=== PATIENT | female | born 1940 | race African-American/Black ===

== ENCOUNTER 2016-07-23 16:57 | Emergency (ER) | payer OTHER ==
[~2016-07-23] VITALS: Ht 162.6 cm; Wt 68.0 kg
[~2016-07-23 16:57] MED LIST: ADULT LOW DOSE81 MG PO; ALTACE5 M1 PO; ARICEPT 5 MG TAB5 MG PO; ARICEPT10 M1 PO; ASPIRIN EC81 M1 PO; CALCIUM 600 +1 EAC1 PO; CEFTIN 250 MG250 MG PO; CELEXA 20 MG TA20 MG PO; CLONAZEPAM 0.50.5 M1 PO; COREG3.125 MG PO; EUCERIN CREME57 GM TOP; FENTANYL PA25 MCG/HR TRANSDERM; FOSAMAX 70 MG T70 MG PO; HYDROCODON-ACE1 EA12 PO; HYDROCODON-ACE1 EAC8 PO; LEVAQUIN 250 M250 MG PO; LISINOPRIL10 MG PO; MULTIVITAMINS PO; NAMENDA 10 MG T10 MG PO; PAIN & FEVER325 MG PO; RISPERDAL0.5 MG PO; SENNA S TABLET1 EACH PO; SENOKOT-S1 TA1 PO; XALATAN2.5 ML OPHTHALMIC
[2016-07-23 17:50] LABS: ABSOLUTE NEUTROPHILS 5.4 thou/uL (1.4-8.2); BASOPHILS 0.7 % (0.0-2.0); EOSINOPHILS 0.5 % (0.0-3.0); HEMATOCRIT 39.9 % (37.0-47.0); HEMOGLOBIN 13.2 gm/dL (12.0-15.0); LYMPHOCYTES 11.3 % (24.0-44.0); MANUAL DIFF NO; MCH 30.2 pg (26.0-34.0); MCHC 33.1 % (28.0-37.0); MCV 91.1 fL (80.0-100.0); MONOCYTES 8.4 % (1.0-8.0); PLATELET COUNT 223 thou/uL (150-400); POLYS 79.1 % (36.0-66.0); RBC 4.38 mil/uL (4.20-5.00); RDW 14.4 % (10.5-14.5); WBC 6.8 thou/uL (4.0-11.0)
[2016-07-23 17:54] LABS: CALCIUM 10.3 mg/dL (8.5-10.1); CREATININE 1.1 mg/dL (0.6-1.3); POTASSIUM 3.9 mmol/L (3.5-5.1)
[2016-07-23 18:01] LABS: ALBUMIN 3.7 g/dL (3.4-5.0); TOTAL BILIRUBIN 0.3 mg/dL (<0.1-1.0); TOTAL PROTEIN 8.7 g/dL (6.4-8.2)
[2016-07-23 18:39] LABS: URINE BILIRUBIN NEGATIVE (Negative); URINE BLOOD TRACE (Negative); URINE COLOR YELLOW; URINE GLUCOSE-RANDOM* NEGATIVE (Negative); URINE KETONES NEGATIVE (Negative); URINE NITRITE POSITIVE (Negative); URINE PROTEIN (DIPSTICK) NEGATIVE (Negative); URINE UROBILINOGEN 0.2 E.U./dl (0.2-1.0)
[2016-07-23 18:48] LABS: SQUAMOUS 0-3 Few /LPF (0-3)
[2016-07-23 18:49] LABS: BACTERIA >30 Many /HPF (None Seen); CASTS None Seen /LPF (None Seen); CRYSTALS None Seen /LPF (None Seen); URINE RBC 0-2 Rare /HPF (0-2); URINE WBC 6-15 Few /HPF (0-5)
[2016-07-23] MEDS ORDERED: KEFLEX500 MG PO (19:46)
== END 2016-07-23 21:20 ==
LOC: ER 16:57
PROVIDERS: Nurse Practitioner Family
DX: J11.1 Influenza due to unidentified influenza virus with other respiratory manifestations (principal); N39.0 Urinary tract infection, site not specified; I10 Essential (primary) hypertension; Z88.0 Allergy status to penicillin; Z88.8 Allergy status to other drugs, medicaments and biological substances

== ENCOUNTER 2018-06-27 08:24 | Inpatient (IN) | payer OTHER ==
[~2018-06-27] VITALS: Ht 157.5 cm; Wt 78.0 kg
--- NOTE | ~2018-06-27 | HC ---
[facility] [place] [address] CONSULTATION Name: SHIVAM HERRERA Room #: 461-P ADM IN M.R.#: [id number] Admission: 06/27/18 Attend Phys: Marni Vu MD Discharge: Date of : 38 Report #: [id number] THIS REPORT FOR: //name// CC: Marni Vu DATE OF SERVICE: 07/02/2018 REASON FOR CONSULTATION: I was asked to evaluate concerning pyelonephritis. HISTORY OF PRESENT ILLNESS: The patient was a 78-year-old resident of a [facility], presented on 06/27/2018 with decreased mental status, acute kidney injury, hyponatremia and found to have E. coli pyelonephritis. Treated with ceftriaxone. Her metabolic encephalopathy has improved. Her hyponatremia has improved over the last several days. The patient was alert, but unable to give any history. History was gleaned from the chart and discussion with nursing. She has urinary incontinence. ALLERGIES: PENICILLIN, SEROQUEL, SERTRALINE. MEDICATIONS: As noted on her MAR including ceftriaxone. PAST MEDICAL HISTORY: Alzheimer's dementia with delusions, urinary incontinence, osteoporosis, lumbar disk disease with chronic pain, hypertension, hyperlipidemia, depression, glaucoma. FAMILY HISTORY: Noncontributory. SOCIAL HISTORY: Nonsmoker, no significant alcohol intake. REVIEW OF SYSTEMS: The patient was unable to participate in evaluation. Through discussion with nursing staff, the patient had reasonable oral intake. No reported vomiting. No diarrhea. She has an external urinary catheter that has been functioning. She has had no skin issues. No cough or sputum production. She is generally debilitated. A 10-point review otherwise, negative. PHYSICAL EXAMINATION: VITAL SIGNS: Afebrile and hemodynamically stable. GENERAL: She was alert, but unable to roll over in bed on her own. She would not answer any questions. HEENT: Nonicteric with no conjunctivitis. Mouth without lesion. NECK: Supple. She had increased muscle tone throughout. SKIN: Without rash or decubitus. No palpable adenopathy. LUNGS: Clear. HEART: Regular, without murmur. ABDOMEN: Soft and nontender. I did not appreciate any CVA tenderness. [facility] [address] [address] CONSULTATION Name: SHIVAM HERRERA Room #: 461-P [facility] IN M.R.#: [id number] Admission: 06/27/18 Attend Phys: Marni Vu MD Discharge: Date of : 38 Report #: [id number] EXTERNAL GENITALIA: With an external catheter in place. There was no lesion or dermatitis identified. RECTAL: Not performed. EXTREMITIES: Without clubbing, cyanosis or edema. NEUROLOGIC: Unable to assess her mood. She was with increased muscle tone throughout. She was able to move her upper extremities. Could not get her to respond well enough to move her lower extremities. She did, when I rolled her over, have some spontaneous movement in the lower legs, but overall very stiff. Plantar reflexes were downgoing. LABORATORY STUDIES: Sodium 142, potassium 4.1, bicarbonate 23, creatinine 1.1. Hemoglobin 10, WBC 8.2, platelet count 196,000. Blood culture E. coli, which was pansensitive. No urine culture placed. Urinalysis showed pyuria and bacteriuria. CT of the abdomen showed gallstones in the gallbladder with no gallbladder wall thickening. Left kidney was enlarged with inflammatory change and perinephric inflammation with an upper pole left renal cyst in the region. This was most consistent with pyelonephritis. No ureteral obstruction. ASSESSMENT: Day 5 treatment left pyelonephritis due to Escherichia coli with associated bacteremia. Acute kidney injury, resolved. Sepsis, resolved. Toxic metabolic encephalopathy, resolved, now back to her baseline dementia. Hypernatremia, resolved. RECOMMENDATION: 1. We will continue with Omnicef 300 mg p.o. b.i.d. to complete 14 days of antibiotic therapy. At this point, it does not appear that the cyst in the region is involved. This will need to be followed, however, by rechecking her urinalysis and urine culture approximately 7-10 days after completing her antibiotic course. 2. Continue hydration and nutritional support. <ELECTRONICALLY SIGNED> By: Rony Bhandari MD 07/03/18 0929 [id number] Rony Bhandari MD /nt
[~2018-06-27 08:24] MED LIST changes: +KEFLEX500 MG PO
[2018-06-27 08:25] VITALS: BP 133/98
[2018-06-27 08:42] LABS: URINE BILIRUBIN NEGATIVE (Negative); URINE BLOOD 2+ (Negative); URINE CLARITY CLOUDY; URINE COLOR YELLOW; URINE GLUCOSE-RANDOM* NEGATIVE (Negative); URINE KETONES NEGATIVE (Negative); URINE LEUKOCYTES 3+ (Negative); URINE NITRITE POSITIVE (Negative); URINE PROTEIN (DIPSTICK) TRACE (Negative); URINE SPECIFIC GRAVITY 1.015 (1.005-1.035); URINE UROBILINOGEN 0.2 E.U./dl (0.2-1.0)
[2018-06-27] MEDS ORDERED: VITAMIN D50000 UNIT PO (08:49)
[2018-06-27] MEDS ORDERED: TYLENOL325 MG PO (08:49)
[2018-06-27] MEDS ORDERED: PRINIVIL20 MG PO (08:50)
[2018-06-27] MEDS ORDERED: XALATAN2.5 ML OPHTHALMIC (08:50)
[2018-06-27] MEDS ORDERED: REMERON15 MG PO (08:50)
[2018-06-27] MEDS ORDERED: TRIPLE ANTIBIO1 EAC1 TOP (08:51)
[2018-06-27 08:55] LABS: ABSOLUTE NEUTROPHILS 5.3 thou/uL (1.4-8.2); BASOPHILS 0.4 % (0.0-2.0); EOSINOPHILS 0.1 % (0.0-3.0); HEMATOCRIT 38.8 % (37.0-47.0); HEMOGLOBIN 12.8 gm/dL (12.0-15.0); LYMPHOCYTES 9.3 % (24.0-44.0); MCH 30.7 pg (26.0-34.0); MCHC 32.9 g/dL (28.0-37.0); MCV 93.5 fL (80.0-100.0); PLATELET COUNT 202 thou/uL (150-400); POLYS 88.2 % (36.0-66.0); RBC 4.16 mil/uL (4.20-5.00); RDW 15.7 % (10.5-14.5)
[2018-06-27 09:08] LABS: CALCIUM 10.9 mg/dL (8.5-10.1); CREATININE 1.9 mg/dL (0.6-1.0); POTASSIUM 3.7 mmol/L (3.5-5.1)
[2018-06-27 09:14] LABS: ALBUMIN 3.1 g/dL (3.4-5.0); TOTAL BILIRUBIN 0.9 mg/dL (<0.1-1.0); TOTAL PROTEIN 9.6 g/dL (6.4-8.2)
[2018-06-27 09:20] LABS: WBC CLUMPS Many (None Seen)
[2018-06-27 09:21] LABS: CASTS None Seen /LPF (None Seen); CRYSTALS None Seen /LPF (None Seen); SQUAMOUS 0-3 Few /LPF (0-3); URINE WBC >25 Many /HPF (0-5)
[2018-06-27 09:22] LABS: BACTERIA >30 Many /HPF (None Seen); URINE RBC 3-10 Few /HPF (0-2)
[2018-06-27 10:12] VITALS: BP 120/65
[2018-06-27 10:33] VITALS: BP 130/54
[2018-06-27 11:00] VITALS: BP 148/63
[2018-06-27 16:00] VITALS: BP 113/57
[2018-06-27 19:25] VITALS: BP 127/68
[2018-06-28 03:01] VITALS: BP 134/66
[2018-06-28 09:42] LABS: HEMATOCRIT 33.3 % (37.0-47.0); HEMOGLOBIN 10.9 gm/dL (12.0-15.0); MCH 30.4 pg (26.0-34.0); MCHC 32.6 g/dL (28.0-37.0); MCV 93.1 fL (80.0-100.0); RBC 3.57 mil/uL (4.20-5.00); RDW 15.5 % (10.5-14.5); WBC 7.8 thou/uL (4.0-11.0)
[2018-06-28 09:51] LABS: CALCIUM 9.6 mg/dL (8.5-10.1); CREATININE 1.4 mg/dL (0.6-1.0); POTASSIUM 3.7 mmol/L (3.5-5.1)
[2018-06-28 11:44] VITALS: BP 125/63
[2018-06-28 21:18] VITALS: BP 115/59
[2018-06-29 04:13] VITALS: BP 144/97
[2018-06-29 08:00] VITALS: BP 153/79
[2018-06-29 16:00] VITALS: BP 127/71
[2018-06-29 19:27] VITALS: BP 105/81
[2018-06-30 03:43] VITALS: BP 105/81; BP 96/52
[2018-06-30 04:16] LABS: CALCIUM 9.1 mg/dL (8.5-10.1); CREATININE 1.4 mg/dL (0.6-1.0); MAGNESIUM 2.2 mg/dL (1.8-2.4); POTASSIUM 4.2 mmol/L (3.5-5.1)
[2018-06-30 08:09] VITALS: BP 118/62
[2018-06-30 14:43] VITALS: BP 102/76
[2018-06-30 19:56] VITALS: BP 130/61
[2018-07-01 03:57] VITALS: BP 118/60
[2018-07-01 04:10] LABS: HEMATOCRIT 30.4 % (37.0-47.0); HEMOGLOBIN 10.1 gm/dL (12.0-15.0); MCH 30.6 pg (26.0-34.0); MCHC 33.2 g/dL (28.0-37.0); MCV 92.2 fL (80.0-100.0); RBC 3.3 mil/uL (4.20-5.00); RDW 14.8 % (10.5-14.5); WBC 8.2 thou/uL (4.0-11.0)
[2018-07-01 04:19] LABS: CALCIUM 9.2 mg/dL (8.5-10.1); CREATININE 1.1 mg/dL (0.6-1.0)
[2018-07-01 07:35] VITALS: BP 132/68
[2018-07-01 14:41] VITALS: BP 109/70
[2018-07-01 19:04] VITALS: BP 97/72
[2018-07-02 04:47] LABS: CALCIUM 9.6 mg/dL (8.5-10.1); CREATININE 1.1 mg/dL (0.6-1.0); POTASSIUM 4.1 mmol/L (3.5-5.1)
[2018-07-02 05:58] VITALS: BP 135/75
[2018-07-02 09:17] VITALS: BP 135/72
[2018-07-02 14:23] VITALS: BP 118/74
[2018-07-02] MEDS ORDERED: CEFDINIR300 MG PO (19:06)
[2018-07-02 19:42] VITALS: BP 98/53
[2018-07-03 04:31] VITALS: BP 114/58
[2018-07-03 07:30] VITALS: BP 117/60
== END 2018-07-03 16:13 | DRG 871 ==
LOC: ER 08:24 → EROBS 10:01 → 4W 10:01
PROVIDERS: Emergency Medicine; Internal Medicine
DX: A41.9 Sepsis, unspecified organism (principal); N17.0 Acute kidney failure with tubular necrosis; G92 Toxic encephalopathy; E87.0 Hyperosmolality and hypernatremia; N12 Tubulo-interstitial nephritis, not specified as acute or chronic; N39.0 Urinary tract infection, site not specified; G30.9 Alzheimer's disease, unspecified; F02.80 Dementia in other diseases classified elsewhere, unspecified severity, without behavioral disturbance, psychotic disturbance, mood disturbance, and anxiety; M81.0 Age-related osteoporosis without current pathological fracture; I10 Essential (primary) hypertension; E78.5 Hyperlipidemia, unspecified; H40.9 Unspecified glaucoma; F32.9 Major depressive disorder, single episode, unspecified; R65.20 Severe sepsis without septic shock; G89.29 Other chronic pain; B96.20 Unspecified Escherichia coli [E. coli] as the cause of diseases classified elsewhere; M19.90 Unspecified osteoarthritis, unspecified site; Z79.82 Long term (current) use of aspirin; Z88.0 Allergy status to penicillin; Z88.8 Allergy status to other drugs, medicaments and biological substances; Z79.899 Other long term (current) drug therapy; Z28.89 Immunization not carried out for other reason
CPT/HCPCS: 10045